=== PATIENT | female | born 1945 | race Caucasian/White ===

== ENCOUNTER 2018-10-26 06:33 | Observation (INO) | payer OTHER ==
--- NOTE | 2018-10-26 07:03 | EDPHY ---
H & P Time Seen by Provider: 10/26/18 06:59 HPI/ROS: CHIEF COMPLAINT: Chest pain, shortness of breath HISTORY OF PRESENT ILLNESS: The patient is a 73-year-old female status post CVA (aphasia/right side weakness residual). The patient was at "stroke camp in [facility]. The patient's states that she was scratching on the wall last evening at around 2:45 a.m.. He thought she needed to go to bathroom. He states that she pointed at her mouth. This is not atypical behavior. She has done this previously. He is unsure as to why she does this. He thinks it may be secondary to anxiety. At this time the patient has no complaints. EMS was notified. She is transport to the emergency department. In route the patient was placed on oxygen. EMS states that there oxygen saturation was approximately 94%. However, the care provider before their arrival stated the patient's oxygen saturation and dipped into the mid 80s. The patient normally wears 2L of O2 at night. She did not bring the O2 to the stroke camp. REVIEW OF SYSTEMS: 10 systems were reveiwed and are negative with the exception of the elements mentioned in the history of present illness. Past Medical/Surgical History: Includes CVA Past surgical history: Includes craniotomy Social history: Patient does not smoke Smoking Status: Never smoked Physical Exam: Vitals noted GENERAL: Well-appearing, in no acute distress, alert. HEENT: Eyes normal to inspection, normal pharynx, no signs of dehydration. NECK: Normal, supple. RESPIRATORY: Clear to auscultation bilaterally, no rales, rhonchi or wheezing. CVS: Regular rate and rhythm, no rubs, murmurs, or gallops. ABDOMEN: Soft, nontender, nondistended, no organomegaly. BACK: Normal to inspection, no CVA tenderness. SKIN: Normal color, no rash, warm, dry. No pallor. EXTREMITIES: No pedal edema, no calf tenderness, no Homans sign or cords, no joint swelling. NEURO/PSYCH: Higher functions: Alert and Oriented x3. Normal speech and cognition. Normal mood and affect. Cranial nerves: Normal as tested. Cerebellar: Normal as tested. Good finger to nose, good [id number], normal gait. Peripheral exam: Normal motor exam. Normal sensation. Normal reflexes. Constitutional: Initial Vital Signs Temperature (C) 36.4 C 10/26/18 06:40 Heart Rate 79 10/26/18 06:40 Respiratory Rate 16 10/26/18 06:40 Blood Pressure 139/78 H 10/26/18 06:40 O2 Sat (%) 95 10/26/18 06:40 O2 Delivery Mode Nasal Cannula O2 (L/minute) 2 Allergies/Adverse Reactions: miconazole [From Neosporin AF] Allergy (Verified 10/26/18 06:39) Penicillins Allergy (Verified 10/26/18 06:39) Home Medications: Medication Instructions Recorded Allopurinol 10/26/18 Cholecalciferol (Vitamin D3) 10/26/18 [Vitamin D3] Colace 10/26/18 Colcrys 10/26/18 Furosemide 10/26/18 Lamotrigine 10/26/18 Omeprazole 10/26/18 Pradaxa 10/26/18 Pravachol 10/26/18 Prilosec 10/26/18 Probiotic 10/26/18 Systane Gel Eye Drops 10/26/18 lamOTRIGine 10/26/18 Medical Decision Making - Diagnostics Imaging Results: Imaging Impressions Chest X-Ray 10/26/18 06:43 Impression: 1. Congestive heart failure versus less likely bilateral pneumonia. 2. No pneumothorax. Head CT 10/26/18 07:29 Impression: 1. Old infarct left cerebral hemisphere. 2. No acute hemorrhage, hydrocephalus, or mass effect. 3. Cerebrovascular atherosclerosis. 4. No definite acute infarct. 5. No epidural or subdural hematoma. Findings and recommendations discussed with Emergency Department physician, Dr. Connie Miller at 0812 hours on October 26, 2018. Final report concurs with initial preliminary interpretation. ED Course/Re-evaluation: In the emergency department I discussed plan with the patient. I answered all her questions. Laboratory studies, EKG, chest x-ray were ordered. EKG: NSR 78. RBB. Prolonged QT. CBC and chemistry unremarkable. Troponin is 0.03. D-dimer is 0.30. Chest x-ray: Please refer the dictated report. Patient has bilateral signs of failure versus less likely pneumonia per the radiologist. Because of the x-ray result, a BNP was ordered. Discussed case with the hospitalist service. Discussed the result with the patient. I answered all of their questions. Patient was given Lasix 20 mg IV for her x-ray findings. I do not start the patient on antibiotics. I discussed this with the hospitalist service. Patient has normal white count. No fever. I think pneumonia is less likely. Differential Diagnosis: My differential includes but is not limited to ACS, acute IN, dissection, aneurysm, pulmonary embolus, anxiety - Data Points Laboratory Results: Laboratory Results 10/26/18 07:30 10/26/18 07:30 10/26/18 10/26/18 10/26/18 07:39 07:30 07:30 WBC RBC Hgb Hct MCV MCH MCHC RDW Plt Count MPV Neut % (Auto) Lymph % (Auto) O'Brien % (Auto) Eos % (Auto) Baso % (Auto) Nucleat RBC Rel Count Absolute Neuts (auto) Absolute Lymphs (auto) Absolute Monos (auto) Absolute Eos (auto) Absolute Basos (auto) Absolute Nucleated RBC Immature Gran % Immature Gran # D-Dimer Sodium 141 mEq/L mEq/L (135-145) Potassium 4.1 mEq/L mEq/L (3.5-5.2) Chloride 104 mEq/L mEq/L (97-110) Carbon Dioxide 27 mEq/l mEq/l (22-31) Anion Gap 10 mEq/L mEq/L (6-14) BUN 22 mg/dL mg/dL (7-23) Creatinine 1.0 mg/dL mg/dL (0.6-1.0) Estimated GFR 54 Glucose 100 mg/dL mg/dL (70-100) Calcium 9.3 mg/dL mg/dL (8.5-10.4) Total Bilirubin 0.4 mg/dL mg/dL (0.1-1.4) AST 25 IU/L IU/L (14-46) ALT 16 IU/L IU/L (9-52) Alkaline Phosphatase 139 IU/L H IU/L (38-126) POC Troponin I 0.03 ng/mL ng/mL (0.00-0.08) NT-Pro-B Natriuret Pep 1190 pg/mL H pg/mL (0-450) Total Protein 7.4 g/dL g/dL (6.3-8.2) Albumin 4.1 g/dL g/dL (3.5-5.0) 10/26/18 10/26/18 07:30 07:30 WBC 5.91 10^3/uL 10^3/uL (3.80-9.50) RBC 4.04 10^6/uL L 10^6/uL (4.18-5.33) Hgb 13.0 g/dL g/dL (12.6-16.3) Hct 39.5 % % (38.0-47.0) MCV 97.8 fL fL (81.5-99.8) MCH 32.2 pg pg (27.9-34.1) MCHC 32.9 g/dL g/dL (32.4-36.7) RDW 15.9 % H % (11.5-15.2) Plt Count 245 10^3/uL 10^3/uL (150-400) MPV 9.7 fL fL (8.7-11.7) Neut % (Auto) 75.8 % H % (39.3-74.2) Lymph % (Auto) 14.6 % L % (15.0-45.0) O'Brien % (Auto) 5.1 % % (4.5-13.0) Eos % (Auto) 3.6 % % (0.6-7.6) Baso % (Auto) 0.7 % % (0.3-1.7) Nucleat RBC Rel Count 0.0 % % (0.0-0.2) Absolute Neuts (auto) 4.49 10^3/uL 10^3/uL (1.70-6.50) Absolute Lymphs (auto) 0.86 10^3/uL L 10^3/uL (1.00-3.00) Absolute Monos (auto) 0.30 10^3/uL 10^3/uL (0.30-0.80) Absolute Eos (auto) 0.21 10^3/uL 10^3/uL (0.03-0.40) Absolute Basos (auto) 0.04 10^3/uL 10^3/uL (0.02-0.10) Absolute Nucleated RBC 0.00 10^3/uL 10^3/uL (0-0.01) Immature Gran % 0.2 % % (0.0-1.1) Immature Gran # 0.01 10^3/uL 10^3/uL (0.00-0.10) D-Dimer 0.30 ug/mLFEU ug/mLFEU (0.00-0.50) Sodium Potassium Chloride Carbon Dioxide Anion Gap BUN Creatinine Estimated GFR Glucose Calcium Total Bilirubin AST ALT Alkaline Phosphatase POC Troponin I NT-Pro-B Natriuret Pep Total Protein Albumin Point of Care Test Results: Chemistry 10/26/18 07:39 POC Troponin I 0.03 ng/mL ng/mL (0.00-0.08) Departure - Departure Disposition: Home, Routine, Self-Care Clinical Impression: Chest pain Qualifiers: Chest pain type: unspecified Qualified Code(s): R07.9 - Chest pain, unspecified Condition: Good Instructions: Chest Pain (ED) Referrals: Patient,NotPresent [Unknown] - As per Instructions
[2018-10-26 07:46] LABS: PLATELET COUNT 245 10^3/uL (150-400)
[2018-10-26] MEDS ORDERED: FUROSEMIDE 20 MG/2 ML VIAL IVP ONE (08:54)
[2018-10-26] MEDS ORDERED: ACETAMINOPHEN 325 MG TAB PO PRN (10:55)
[2018-10-26] MEDS ORDERED: ONDANSETRON 4 MG/2 ML VIAL IVP PRN (10:55)
[2018-10-26] MEDS ORDERED: ONDANSETRON DISINTEGRATING 4 MG TAB PO PRN (10:55)
--- NOTE | 2018-10-26 11:22 | ASMTCMCOM ---
CM Note CM Note Notes: Pt presented to the Emergency Department via EMS with possible chest pain, shortness of breath and anxiety. History includes a CVA with right sided weakness, aphasia, and craniotomy. Pt was at a stroke camp in [place] when her symptoms began. She is and is accompanied by her . They live in [place]. CM unable to meet with pt in the ED prior to transfer to the floor. Discharge needs remain unclear at this time. CM will continue to follow. Discharge Plan: To be determined Date Signed: 10/26/2018 11:22 AM Electronically Signed By:Madiha Rubio RN
--- NOTE | 2018-10-26 11:30 | GHP ---
[f rep st] HISTORY AND PHYSICAL DATE OF ADMISSION: 10/26/2018 CHIEF COMPLAINT: Shortness of breath. HISTORY OF PRESENT ILLNESS: The patient is a 73-year-old female status post CVA with aphasia and rig ht-sided weakness. The patient was attending stroke camp in [facility] when she developed some wendi rtness of breath and pointing at her throat. She was evaluated by the staff there and felt that her vital signs were mildly unstable, indicating that she was hypoxic. The patient has done this previou sly and the has been able to converse with her and encouraged her to take deep breaths at [facility] time she does seem to resolve her current issue. I do feel that there is a significant component of anxiety related to this. However, the patient is hypoxic on room air and continues to be. At [facility] s time, the patient has no complaints. The patient's does have a journal of daily vital sign s of which the patient has not been hypoxic recently based on his assessment. She normally wears 2 L of oxygen at night. However, while at [facility] stroke cra she has not been wearing this, alth ough the patient has been has monitor the patient closely. She denies any nausea, vomiting, or diarr hea. She denies any fever sweats or night chills. REVIEW OF SYSTEMS: 10-point review of systems negative other than noted in the HPI. PAST MEDICAL HISTORY: 1. CVA. 2. Atrial fibrillation. 3. Residual right-sided weakness. 4. Seizure disorder. PAST SURGICAL HISTORY: Craniotomy. SOCIAL HISTORY: The patient does not smoke. She does not drink. She resides with her . PHYSICAL EXAM: GENERAL: The patient is alert, well-appearing, in no acute distress. VITAL SIGNS: Afebrile at 36.3, pulse 79, respiratory rate is 18, blood pressure is 128/84. She is saturating 98% on 2 L, 87% on room air. HEENT: Normocephalic, atraumatic. Mucosal membranes are moist. Pupils eq ual, round, reactive to light respiratory lungs are clear to auscultation bilaterally. No rhonchi or wheezes noted. ABDOMEN: Bowel sounds are positive. Soft. Nontender there is no guarding, rigidit y noted. EXTREMITIES: Within normal limits. There is no clubbing or cyanosis appreciated. SKIN: Without rashes or lesions. NEUROLOGICAL: The patient has aphasia. She has residual right-sided wea kness. ALLERGIES: Neosporin, penicillin. HOME MEDICATION: Allopurinol, vitamin D, Colace, Lasix, lamotrigine, omeprazole, Pradaxa, Pravachol, Prilosec, probiotic. RADIOLOGICAL STUDIES: Chest x-ray demonstrates congestive heart failure versus potential bilateral p neumonia. Head CT notes old infarct on the left. No acute hemorrhage. Laboratory evaluation CBC, m etabolic panel are essentially benign. Patient's BNP is 1190. EKG is normal sinus rhythm with prolo nged QT and right bundle branch block. ASSESSMENT/PLAN: A 73-year-old woman status post cerebrovascular accident with aphasia and complaint s. 1. Congestive heart failure. The patient is hypoxic on room air and does note mild congestive heart failure on chest x-ray. She was given 20 mg of Lasix. The does tell me that she had previo usly been on Lasix Sunday, Sunday, and Sunday. However, her drum drier had just recently increa sed her to a daily dose of Lasix, which she has not initiated at this time. We will continue support sary care. We will not administer any further diuretics at this time and monitor the patient's respon se. 2. Aphasia. This is the patient's baseline. She is easy to communicate with and understand your qu estions. 3. Acute hypoxemic respiratory failure. Again, the patient does require nocturnal oxygen, which she has not recently been wearing. We will continue supplemental oxygen at this time. Hopefully, the p atportia's hypoxemic respiratory failure will resolve based on her diuretic therapy. DISPOSITION: She will be admitted to observation status. Anticipate she will be able to discharge i n the next 48 hours. I have discussed the patient's care at length with the emergency room physician , Dr. Connie Miller. /[id number]/MODL
--- NOTE | 2018-10-26 15:06 | CPEKG ---
Test Reason : OPEN Blood Pressure : / mmHG Vent. Rate : 078 BPM Atrial Rate : 079 BPM P-R Int : 312 ms QRS Dur : 123 ms QT Int : 460 ms P-R-T Axes : 264 -74 045 degrees QTc Int : 525 ms Sinus or ectopic atrial rhythm Prolonged FL interval Right bundle branch block LVH with secondary repolarization abnormality Confirmed by Connie Miller ([id number]) on 10/26/2018 3:06:04 PM Referred By: Connie Miller Confirmed By:Connie Miller
[2018-10-26] MEDS ORDERED: DOCUSATE SODIUM 100 MG CAP PO PRN (16:35)
[2018-10-26] MEDS ORDERED: COLCHICINE 0.6 MG CAP/TAB PO PRN (16:35)
[2018-10-26] MEDS ORDERED: PEG EACHEYE SCH (21:00)
[2018-10-26] MEDS ORDERED: PROPYLENE GLYCOL EACHEYE SCH (21:00)
[2018-10-26] MEDS: DABIGATRAN ETEXILATE MESYL 150 MG CAP PO SCH (21:18)
[2018-10-26] MEDS: lamoTRIgine 100 MG TAB PO SCH (21:18)
[2018-10-27] MEDS ORDERED: METOPROLOL SUCCINATE XR 50 MG TAB PO SCH (09:00)
[2018-10-27] MEDS ORDERED: PRAVASTATIN SODIUM 40 MG TAB PO SCH (09:00)
[2018-10-27] MEDS ORDERED: LEVOTHYROXINE 100 MCG TAB PO SCH (09:00)
[2018-10-27] MEDS ORDERED: Herbals/Supplements -Info Only PO SCH (09:00)
[2018-10-27] MEDS ORDERED: NON-FORMULARY NEW DRUG (Omeprazole [Omeprazole] 40 MG) PO SCH (09:00)
[2018-10-27] MEDS ORDERED: PANTOPRAZOLE SODIUM 40 MG TAB PO SCH (09:00)
[2018-10-27] MEDS ORDERED: CHOLECALCIFEROL VIT D3 2,000 UNITS TAB/CAP PO SCH (09:00)
[2018-10-27] MEDS ORDERED: MULTIVITAMINS 1 EACH TAB PO SCH (09:00)
[2018-10-27] MEDS ORDERED: ALLOPURINOL 100 MG TAB PO SCH (09:00)
[2018-10-27] MEDS: DABIGATRAN ETEXILATE MESYL 150 MG CAP PO SCH (09:21)
[2018-10-27] MEDS: lamoTRIgine 100 MG TAB PO SCH (09:22)
[2018-10-27 12:01] VITALS: BP 112/72
[2018-10-27] MEDS ORDERED: FUROSEMIDE 20 MG TAB PO SCH (12:30)
--- NOTE | 2018-10-27 13:12 | PDDCSUM ---
Discharge Summary Discharge Summary: 73 yo female with CHF and hx of stroke who had recently been instructed to increase her Lasix dose to daily but was not due to a Stroke Camp and activities. She was admitted with CHF-E and diuresed. She is now better and has been restarted on her daily Lasix. She will f/u with her pcp in one week DDX: #CHF-E #Hx of Afib #Hx of CVA #HLD #GERD Meds: Lasix was increased Exam: NAD AAOX3 RRR CTA B TOTAL TIME SPENT ON D/C IS 35 MINS
--- NOTE | 2018-10-27 14:34 | ASMTCMCOM ---
CM Note CM Note Notes: Patient discussed in clinical rounds, she will likely discharge to home today independent with . CM to follow. D/C Plan: Independent. Date Signed: 10/27/2018 02:33 PM Electronically Signed By:Sarah Pang
[2018-10-28] MEDS ORDERED: FUROSEMIDE 20 MG TAB PO SCH (08:00)
== END 2018-10-27 13:52 | disposition home or self-care (01) ==
LOC: F2W 09:55
PROVIDERS: ADMIT Internal Medicine; ATTEND Family Medicine
DX: I50.9 Heart failure, unspecified (principal); R09.02 Hypoxemia; I69.320 Aphasia following cerebral infarction; I69.351 Hemiplegia and hemiparesis following cerebral infarction affecting right dominant side; E78.5 Hyperlipidemia, unspecified; K21.9 Gastro-esophageal reflux disease without esophagitis
CPT/HCPCS: 70450; 71045; 93005; 96374; 97116; 97163; 99285; G0378; J1940; 84484-ER